=== PATIENT | male | born 1980 | race Caucasian/White ===

== ENCOUNTER 2018-11-15 15:45 | Emergency (ER) | payer BC ==
[~2018-11-15] VITALS: Ht 175.3 cm; Wt 90.7 kg
--- NOTE | 2018-11-15 15:50 | NUR ---
PT CAME IN FOR R MIDDLE FINGER PIERCING WOUND. NOT UTD TO TETANUS SHOT. TO ER BED 4, HOOKED TO MONITOR, AWAITING MD LOZANO.
--- NOTE | 2018-11-15 16:00 | NUR ---
PA FOSTER AT BEDSIDE
--- NOTE | 2018-11-15 16:15 | NUR ---
DR LUGO AT BEDSIDE
[2018-11-15] MEDS ORDERED: LIDOCAINE HCL/PF 1% 30 ML SDV ONE (16:17)
[2018-11-15] MEDS ORDERED: TDAP [DIPH/PERTUSSIS/TET] 0.5 ML VIAL IM ONE (16:18)
[2018-11-15] MEDS ORDERED: ACETAMINOPHEN ES 500 MG TABLET ONE (16:18)
[2018-11-15] MEDS: ACETAMINOPHEN ES 500 MG TABLET PO ONE (16:26)
[2018-11-15] MEDS: TDAP [DIPH/PERTUSSIS/TET] 0.5 ML VIAL IM ONE (16:26)
[2018-11-15] MEDS: LIDOCAINE HCL/PF 1% 30 ML VIAL TP ONE (16:26)
[2018-11-15] MEDS ORDERED: LIDOCAINE 1%-EPI 1:100,000 20 ML VIAL ONE (17:31)
--- NOTE | 2018-11-15 18:16 | NUR ---
Patient discharged to home in stable condition. Written and verbal after care instructions given. Patient verbalizes understanding of instruction.
[2018-11-15 18:18] VITALS: BP 138/94
== END 2018-11-15 18:18 | disposition home or self-care (01) ==
LOC: ER 15:48
DX: S60.452A Superficial foreign body of right middle finger, initial encounter (principal); Z88.0 Allergy status to penicillin; W45.8XXA Other foreign body or object entering through skin, initial encounter; Y93.K1 Activity, walking an animal; Y92.89 Other specified places as the place of occurrence of the external cause; Y99.8 Other external cause status
CPT/HCPCS: 10120; 73140; 90471; 90715; 99284; A6402; J3490 ×3